=== PATIENT | male | born 1965 | race Caucasian/White ===

== ENCOUNTER 2018-11-21 08:51 | Day surgery (SDC) | payer OTHER ==
[2018-11-12 16:52] VITALS: BMI 26.6
[2018-11-21] MEDS ORDERED: EPINEPHrine 1:1,000 1 MG/1 ML - 30ML VIAL (INJECTION) ONE (10:52)
[2018-11-21] MEDS ORDERED: BUPIVACAINE HCL 0.25% 125 MG/50 ML VIAL ONE (10:52)
[2018-11-21] MEDS ORDERED: MIDAZOLAM HCL 2 MG/2 ML SINGLE DOSE VIAL ONE ×3 (11:04→12:57)
[2018-11-21] MEDS ORDERED: ROPIVACAINE HCL 0.5% 30ML VIAL ONE (11:05)
[2018-11-21] MEDS ORDERED: PROPOFOL 20 ML ONE ×4 (11:43→13:20)
[2018-11-21] MEDS ORDERED: SUCCINYLCHOLINE CHLORIDE 200 MG/10 ML SYRINGE ONE (11:43)
[2018-11-21] MEDS ORDERED: KETOROLAC TROMETHAMINE 30 MG/1 ML VIAL ONE (11:58)
[2018-11-21] MEDS ORDERED: DEXAMETHASONE SOD PHOSPHATE 4 MG/1 ML VIAL ONE (11:58)
[2018-11-21] MEDS ORDERED: ONDANSETRON 4 MG/2 ML VIAL ONE (11:58)
[2018-11-21] MEDS ORDERED: ceFAZolin SODIUM 1 GM VIAL ONE (11:58)
[2018-11-21] MEDS ORDERED: BUPIVACAINE HCL/EPINEPHRINE/PF 30 ML VIAL IJ ONE (12:02)
[2018-11-21] MEDS ORDERED: oxyCODONE HCL 5 MG TABLET PO PRN ×3 (13:35→13:49)
[2018-11-21] MEDS ORDERED: oxyCODONE HCL 10 MG SUSTAINED ACTING TABLET PO ONE (13:35)
--- NOTE | 2018-11-21 13:37 | OP ---
Operative Note - Note: Operative Date: 11/21/18 Pre-Operative Diagnosis: Right shoulder RCT, biceps tear Operation: RSA, decompression, open biceps tenodesis Surgeon: Gonsalo Caal Job Site Supervisor: Kael Nagy Anesthesia: General Operative Report Dictated: Yes
--- NOTE | 2018-11-21 13:37 | DS ---
Physical Examination Vital Signs: Vital Signs Temperature 98.5 F 11/21/18 09:11 Pulse Rate 54 L 11/21/18 09:11 Respiratory Rate 16 11/21/18 09:11 Blood Pressure 135/80 11/21/18 09:11 O2 Sat by Pulse Oximetry (%) 100 11/21/18 09:31 Discharge Summary Reason For Visit: BICEPS TENDINITIS RIGHT SHOULDER Condition: Good - Instructions Diet, Activity, Other Instructions: Post Operative Instructions: Shoulder Arthroscopy Dr Gonsalo Caal 1. Pain following a Shoulder Arthroscopy is variable and can be significant. Some patients will have more pain than others. You have been provided with a prescription for medication that contains a narcotic. You are not allowed to drive while on this medication. You can take Tylenol (Acetaminophen) when taking the pain medication ( it will not result in an overdose). Feel free to take medications such as Ibuprofen or Naprosyn in addition to the pain medicine if you do not have any problems with the NSAID class of medications. 2. Apply ice to the shoulder for 15 minutes every hour. You may continue this for as many days as necessary. 3. You may find sleeping on an incline (reclining chair) to be more comfortable for the first few days. 4. You must remain in your sling at all times except when showering. The only exception to this is to allow you to stretch your elbow a few times a day to prevent your hand and forearm from swelling. 5. You are not to use your arm to reach for anything, lift anything or carry anything until instructed otherwise. 6. You may remove the bandages in 48 hours. You may shower at that point. 7. Place band-aids on the sutures after your shower.Do not put any creams or lotions on the incision until after the sutures are removed. 8. Please call the office to schedule a visit to have your sutures removed. 9. If for any reason you believe you may have an infection or are concerned, please feel free to call me. I can be reached through our office number 24 hours a day. 10. Please call our office with any questions; we will review the surgical findings during your post-operative visit. Disposition: HOME - Home Medications Comprehensive Discharge Medication List: Ambulatory Orders Allopurinol [Zyloprim -] 100 mg PO DAILY 11/12/18 Dio/D3/Mag11/Zinc/Product Test Specialist/Andry/Bor [Caltrate 600+D Plus Tablet] 1 tab PO DAILY 11/12 Oxycodone HCl 5 mg PO PRN 11/12/18
[2018-11-21] MEDS ORDERED: ONDANSETRON 4 MG/2 ML VIAL IVPUSH PRN (13:49)
[2018-11-21] MEDS ORDERED: PROMETHAZINE HCL 25 MG/1 ML VIAL IVPB PRN (13:49)
[2018-11-21] MEDS ORDERED: oxyCODONE HCL 10 MG SUSTAINED ACTING TABLET ONE (14:11)
[2018-11-21 15:10] VITALS: BP 132/80; PULSE 55; TEMP 97.8
--- NOTE | 2018-11-21 18:24 | SURG ---
Surgery Steward/Stewardess Third Note Steward/Stewardess Third: Kael Nagy PA-C Date of Service: 11/21/18 Diagnosis: Right shoulder Rotator Cuff Tear, biceps tear Procedure: Right Shoulder Arthroscopy, decompression, open biceps tenodesis I was present for the entirety of the operative procedure. For further detail, please refer to operative report. Visit type - Case Type Case Type: Scheduled - New patient This patient is new to me today: Yes Date on this admission: 11/21/18
--- NOTE | 2018-11-26 17:06 | PATH ---
Surgical Pathology Report Patient Name: SUMMER COELHO Med. Rec. #: [id number] /Age/Gender: 1965 (Age: 52) / M Account: [id number] Location: [facility] Taken: 11/21/2018 Received: 11/25/2018 Reported: 11/26/2018 Physicians: Gonsalo Caal M.D. Specimen(s) Received A: SHAVINGS RIGHT SHOULDER B: RIGHT BICEPS TENDON Clinical History R biceps tendinitis Final Diagnosis A. SHOULDER SHAVINGS, RIGHT, ARTHROSCOPY: FRAGMENTS OF BENIGN CARTILAGE, DENSE FIBROCONNECTIVE TISSUE, ADIPOSE TISSUE, AND SKELETAL MUSCLE. B. BICEPS TENDON, RIGHT, BICEPS TENODESIS: PORTION OF BENIGN TENDON. Electronically Signed Ivonne Roberson M.D. Gross Description A. Received in formalin, labeled "shavings, right shoulder" is a 3.8 x 2 x 0.3 cm aggregate of light sweeney and yellow-sweeney tissue. Clinic Director tissue is submitted in one cassette. B. Received in formalin, labeled "right biceps tendon" is a 10.3 x 1.4 x 0.5 cm portion of partially disrupted tendon. Clinic Director tissue is submitted in one cassette. AE/11/26/2018 ebram/11/26/2018
== END 2018-11-21 15:10 | disposition home or self-care (01) ==
LOC: FASU 08:51
PROVIDERS: ATTEND Orthopaedic Surgery
PROC: 0LS10ZZ Reposition Right Shoulder Tendon, Open Approach (ICD-10-PCS; 2018-11-21)
PROC: 0RNJ4ZZ Release Right Shoulder Joint, Percutaneous Endoscopic Approach (ICD-10-PCS; principal; 2018-11-21 12:24)
DX: M75.111 Incomplete rotator cuff tear or rupture of right shoulder, not specified as traumatic (principal); M75.51 Bursitis of right shoulder; M75.21 Bicipital tendinitis, right shoulder; Z53.33 Arthroscopic surgical procedure converted to open procedure
CPT/HCPCS: 88304-TC

== ENCOUNTER 2022-06-18 18:30 | Day surgery (SDC) | payer OTHER ==
[2022-06-14 14:30] VITALS: BMI 30.7
[2022-06-18] MEDS: LACTATED RINGERS SOLUTION 1,000 ML IV SCH (16:01)
[2022-06-18] MEDS: ACETAMINOPHEN 1000 MG/100 ML BAG IVPB SCH ×2 (16:01→23:39)
[2022-06-18] MEDS: morphine SULFATE 4 MG/ML VIAL IVPUSH PRN ×2 (16:07→23:47)
[2022-06-18] MEDS: oxyCODONE HCL 5 MG TABLET PO PRN ×2 (18:12→21:00)
[~2022-06-18 18:30] MED LIST: BUPIVACAINE HCL 50 ML ONE; BUPIVACAINE LIPOSOME/PF (EXPAREL) 266 MG/20 ML VIAL ONE; CELECOXIB 200 MG CAPSULE PO ONE; CLINDAMYCIN 600MG PREMIX IVPB 1,200 MG/100 ML BAG IVPB ONE; LACTATED RINGERS SOLUTION 1,000 ML IV SCH; MAG HYDROX/AL HYDROX/SIMETH 30 ML UNIT-DOSE CUP PO PRN; MAGNESIUM HYDROX 2400MG/30ML ORAL SUSPENSION 30 ML CUP PO PRN; MIDAZOLAM HCL 2 MG/2 ML SINGLE DOSE VIAL ONE; ONDANSETRON 4 MG/2 ML VIAL IVPUSH PRN; PROPOFOL 20 ML ONE; PROPOFOL 80 ML ONE; ROCURONIUM BROMIDE 50 MG/5 ML SYRINGE ONE; TRANEXAMIC ACID 1000 MG/10 ML VIAL IVPUSH ONE; TRANEXAMIC ACID 1000 MG/10 ML VIAL ONE; ePHEDrine SULFATE 50 MG/1 ML AMPULE ONE; morphine SULFATE 4 MG/ML VIAL IVPUSH PRN; oxyCODONE HCL 5 MG TABLET PO PRN
[2022-06-18] MEDS ORDERED: CLINDAMYCIN 600MG PREMIX IVPB 600 MG/50 ML BAG IVPB SCH (19:30)
[2022-06-18] MEDS: CLINDAMYCIN 600MG PREMIX IVPB 600 MG/50 ML BAG IVPB SCH (20:17)
[2022-06-18] MEDS: LOSARTAN POTASSIUM 25 MG TABLET PO SCH (21:24)
[2022-06-18] MEDS: SENNOSIDES/DOCUSATE COMBO (SENNA PLUS) TABLET (UD) PO SCH (21:25)
[2022-06-18] MEDS: amLODIPine BESYLATE 5 MG TABLET (FP) PO SCH (21:25)
[2022-06-18] MEDS: ALLOPURINOL 100 MG TABLET (FP) PO SCH (21:25)
[2022-06-18] MEDS: FAMOTIDINE 20 MG TABLET PO SCH (21:25)
[2022-06-18] MEDS: ASPIRIN 81 MG CHEWABLE TABLETS PO SCH (21:26)
[2022-06-18] MEDS ORDERED: LOSARTAN POTASSIUM 25 MG TABLET PO SCH (22:00)
[2022-06-18] MEDS ORDERED: amLODIPine BESYLATE 5 MG TABLET (FP) PO SCH (22:00)
[2022-06-18] MEDS ORDERED: oxyCODONE HCL 10 MG SUSTAINED ACTING TABLET PO SCH (22:00)
[2022-06-18] MEDS ORDERED: ALLOPURINOL 100 MG TABLET (FP) PO SCH (22:00)
[2022-06-19] MEDS ORDERED: VANCOMYCIN 1,000 MG in DEXTROSE 5%-WATER - 250 ML IVPB ONE (00:01)
[2022-06-19] MEDS ORDERED: VANCOMYCIN/WATER FOR INJ (PEG) 1,000 MG/200 ML BAG IVPB ONE (00:01)
[2022-06-19] MEDS ORDERED: VANCOMYCIN 1 GRAM (PRE-DOCKED) 1,000 MG/200 ML BAG IVPB ONE (00:01)
[2022-06-19] MEDS: oxyCODONE HCL 5 MG TABLET PO PRN ×6 (01:12→23:00)
[2022-06-19] MEDS: CLINDAMYCIN 600MG PREMIX IVPB 600 MG/50 ML BAG IVPB SCH ×2 (03:21→10:41)
[2022-06-19] MEDS: ACETAMINOPHEN 1000 MG/100 ML BAG IVPB SCH ×3 (07:08→23:18)
[2022-06-19] MEDS: CELECOXIB 200 MG CAPSULE PO SCH (09:05)
[2022-06-19] MEDS: MULTIVITAMINS (DAILY MVI) TABLET (FP) PO SCH (09:05)
[2022-06-19] MEDS: ASPIRIN 81 MG CHEWABLE TABLETS PO SCH ×2 (09:06→21:15)
[2022-06-19] MEDS: SENNOSIDES/DOCUSATE COMBO (SENNA PLUS) TABLET (UD) PO SCH ×2 (09:06→21:15)
[2022-06-19] MEDS: FAMOTIDINE 20 MG TABLET PO SCH ×2 (09:06→21:14)
[2022-06-19] MEDS: ALLOPURINOL 100 MG TABLET (FP) PO SCH ×2 (09:06→21:15)
[2022-06-19] MEDS ORDERED: DEXAMETHASONE 4 MG TABLET (FP) PO ONE (10:00)
[2022-06-19] MEDS ORDERED: MULTIVITAMINS (DAILY MVI) TABLET (FP) PO SCH (10:00)
[2022-06-19] MEDS ORDERED: MULTIVITAMIN PO SCH (10:00)
[2022-06-19] MEDS: morphine SULFATE 4 MG/ML VIAL IVPUSH PRN (20:14)
[2022-06-19] MEDS: amLODIPine BESYLATE 5 MG TABLET (FP) PO SCH (21:14)
[2022-06-19] MEDS: LOSARTAN POTASSIUM 25 MG TABLET PO SCH (21:15)
[2022-06-19] MEDS: LACTATED RINGERS SOLUTION 1,000 ML IV SCH (21:15)
[2022-06-19 22:07] VITALS: RESP 18
[2022-06-20] MEDS: oxyCODONE HCL 5 MG TABLET PO PRN ×3 (03:00→14:35)
[2022-06-20] MEDS: morphine SULFATE 4 MG/ML VIAL IVPUSH PRN ×2 (05:56→11:08)
[2022-06-20] MEDS: FAMOTIDINE 20 MG TABLET PO SCH (10:08)
[2022-06-20] MEDS: CELECOXIB 200 MG CAPSULE PO SCH (10:08)
[2022-06-20] MEDS: ALLOPURINOL 100 MG TABLET (FP) PO SCH (10:08)
[2022-06-20] MEDS: MULTIVITAMINS (DAILY MVI) TABLET (FP) PO SCH (10:08)
[2022-06-20] MEDS: SENNOSIDES/DOCUSATE COMBO (SENNA PLUS) TABLET (UD) PO SCH (10:08)
[2022-06-20] MEDS: ASPIRIN 81 MG CHEWABLE TABLETS PO SCH (10:08)
[2022-06-20] MEDS: ACETAMINOPHEN 1000 MG/100 ML BAG IVPB SCH ×2 (11:23→16:07)
[2022-06-20 14:35] VITALS: BP 142/68; PULSE 72; TEMP 99.2
== END 2022-06-20 16:49 | disposition home or self-care (01) ==
LOC: FM/S 18:30 → FASUSAT 18:30 → FM/S 06-19 16:57 → UNDOADMIN 06-19 16:58 → FM/S 06-19 16:58 → FASUSAT 06-20 16:49
PROVIDERS: ATTEND Orthopaedic Surgery
PROC: 0SRC0J9 Replacement of Right Knee Joint with Synthetic Substitute, Cemented, Open Approach (ICD-10-PCS; principal; 2022-06-18 12:12)
DX: M17.11 Unilateral primary osteoarthritis, right knee (principal)
CPT/HCPCS: 27447; C1776; 73560-TC-RT-FY; 94760; 97010-GP; 97116-GP; 97162-GP; C1889